=== PATIENT | female | born 1960 | race Caucasian/White ===

== ENCOUNTER → 2023-02-13 | Outpatient (CLI) | payer MEDICARE ==
[~2023-02-13] MED LIST: ALPR.5 PO; BUPR150ER PO; CIME400 PO; Diflucan150 MG PO; INVEGA PO; LACT10SY PO; OLAN5 PO; OMEP20ER PO; PALI3TAB PO
[2023-02-14 14:35] LABS: Microalbumin, Random Urine 8.3 mg/L (0.000-20.000)
[2023-02-14 15:24] LABS: Creatinine, Urine Random 43.8 mg/dL (27.00-270.00); Microalb/Creat Ratio UR, Rand 18.95 mg/g (0.000-30.000)
== END | disposition home or self-care (01) ==
LOC: LAB SHORT 16:15
PROVIDERS: Family Medicine
DX: E11.9 Type 2 diabetes mellitus without complications (principal)
CPT/HCPCS: 82043; 82570

== ENCOUNTER 2024-08-30 13:37 | Emergency (ER) | payer MEDICARE ==
[~2024-08-30] VITALS: Ht 162.6 cm; Wt 81.7 kg
[2024-08-30] MEDS ORDERED: CLON.5 PO (13:49)
[2024-08-30] MEDS ORDERED: Pepcid20 MG PO (13:50)
[2024-08-30] MEDS ORDERED: Crestor40 MG PO (13:52)
[2024-08-30] MEDS ORDERED: ACYC400 PO (13:52)
[2024-08-30] MEDS ORDERED: ALBU90OI INH (13:53)
[2024-08-30] MEDS ORDERED: PRAZ1 PO (13:53)
[2024-08-30] MEDS ORDERED: MELO7.5 PO (13:54)
[2024-08-30 14:05] VITALS: BP 96/73
[2024-08-30 14:33] LABS: Albumin, Blood 3.4 g/dL (3.4-5.0); Bilirubin, Total 0.6 mg/dL (0.1-1.0); Bun/Creatinine Ratio 19.5 (12.0-20.0); Calcium, Blood 8.5 mg/dL (8.5-10.1); Creatinine, Blood 0.72 mg/dL (0.40-1.00); Globulin, Blood 3.3 g/dL (2.2-4.0); Potassium, Blood 4.9 mmol/L (3.5-5.5); Total Protein, Blood 6.7 g/dL (6.4-8.2)
[2024-08-30 14:35] LABS: BASOPHILS ABSOLUTE AUTO 0.09 K/mm3 (0.00-0.23); BASOPHILS PERCENT AUTO 1 % (0-2); EOSINOPHILS ABSOLUTE AUTO 0.16 K/mm3 (0.00-0.68); EOSINOPHILS PERCENT AUTO 2 % (0-6); Hematocrit 39.1 % (33.0-51.0); IMMATURE GRAN ABSOLUTE AUTO 0.02 K/mm3 (0.00-0.10); IMMATURE GRAN PERCENT AUTO 0 % (0-1); LYMPHOCYTES ABSOLUTE AUTO 2.94 K/mm3 (0.84-5.20); LYMPHOCYTES PERCENT AUTO 33 % (21-46); MONOCYTES ABSOLUTE AUTO 0.75 K/mm3 (0.16-1.47); MONOCYTES PERCENT AUTO 9 % (4-13); Mean Corpuscular HGB 32.1 pg (26.0-34.0); Mean Corpuscular HGB Conc 33.2 g/dL (31.5-36.5); Mean Corpuscular Volume 97 fL (80-100); Mean Platelet Volume 10.4 fL (9.1-12.4); NEUTROPHILS ABSOLUTE AUTO 4.89 K/mm3 (1.96-9.15); NEUTROPHILS PERCENT AUTO 55 % (41-73); Platelet Count 298 K/mm3 (150-400); RDW Coefficient Variation 13.5 % (11.7-14.2); RDW Standard Deviation 48.2 fL (35.1-46.3); Red Blood Cell Count 4.05 M/mm3 (3.80-5.20); White Blood Cell Count 8.85 K/mm3 (4.00-11.30)
[2024-08-30] MEDS ORDERED: MethylPREDNISolone Sod Succ 125 MG Vial IV ONE (15:20)
[2024-08-30] MEDS ORDERED: Azithromycin 250 MG Tab PO ONE (15:20)
[2024-08-30] MEDS ORDERED: NYSTATIN100000 U10 MT (15:23)
[2024-08-30] MEDS ORDERED: AZIT250 PO (15:23)
[2024-08-30] MEDS ORDERED: PRED20 PO (15:23)
== END 2024-08-30 15:49 | disposition home or self-care (01) ==
LOC: ER 13:37
PROVIDERS: Emergency Medicine
DX: J44.1 Chronic obstructive pulmonary disease with (acute) exacerbation (principal); B37.0 Candidal stomatitis; F17.200 Nicotine dependence, unspecified, uncomplicated; Z79.899 Other long term (current) drug therapy; Z79.52 Long term (current) use of systemic steroids
CPT/HCPCS: 71046; 80053; 83880; 84484; 85025; 93005; 93010; 96374; 99285-25; A9270; J2919